=== PATIENT | female | born 1990 | race Caucasian/White ===

== ENCOUNTER → 2022-04-04 13:50 | Outpatient (BNVA) | payer OTHER, SELFPAY | PROVIDERS: Visit Provider Physician Assistant Medical | DX: S70.371A Other superficial bite of right thigh, initial encounter (principal); W50.3XXA Accidental bite by another person, initial encounter | CPT/HCPCS: 99203 ==

== ENCOUNTER → 2022-08-29 12:34 | Outpatient (BNVA) | payer OTHER, SELFPAY | PROVIDERS: Visit Provider Physician Assistant Medical | DX: S61.051A Open bite of right thumb without damage to nail, initial encounter (principal); W50.3XXA Accidental bite by another person, initial encounter | CPT/HCPCS: 99202 ==

== ENCOUNTER → 2022-12-13 12:36 | Outpatient (BNVA) | payer OTHER, SELFPAY | PROVIDERS: Visit Provider Physician Assistant | DX: S60.471A Other superficial bite of left index finger, initial encounter (principal); S67.191A Crushing injury of left index finger, initial encounter; W50.3XXA Accidental bite by another person, initial encounter; R11.0 Nausea; R42 Dizziness and giddiness | CPT/HCPCS: 29130; 99203 ==

== ENCOUNTER → 2022-12-15 08:03 | Outpatient (BNVA) | payer OTHER, SELFPAY | PROVIDERS: Visit Provider Physician Assistant Medical | DX: S46.912A Strain of unspecified muscle, fascia and tendon at shoulder and upper arm level, left arm, initial encounter (principal); W50.3XXA Accidental bite by another person, initial encounter | CPT/HCPCS: 99213 ==

== ENCOUNTER → 2022-12-19 08:04 | Outpatient (BNVA) | payer OTHER, SELFPAY | PROVIDERS: Visit Provider Physician Assistant Medical | DX: S46.812A Strain of other muscles, fascia and tendons at shoulder and upper arm level, left arm, initial encounter (principal); S67.191A Crushing injury of left index finger, initial encounter; S63.207A Unspecified subluxation of left little finger, initial encounter; Y04.1XXA Assault by human bite, initial encounter | CPT/HCPCS: 99213 ==